=== PATIENT | male | born 2000 | race Caucasian/White ===

== ENCOUNTER 2022-06-13 13:00 | Emergency (ER) | payer OTHER ==
[~2022-06-13] VITALS: Ht 177.8 cm; Wt 87.5 kg
[2022-06-13 13:06] VITALS: BP 142/92
--- NOTE | 2022-06-13 13:16 | NUR ---
Patient ambulated to bed 7
--- NOTE | 2022-06-13 13:31 | NUR ---
WILLIAN Gonzalez evaluating patient at bedside.
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
[2022-06-13] MEDS ORDERED: ONDANSETRON 4 MG ODT PO ONE (13:40)
[2022-06-13] MEDS ORDERED: IBUP-2213 PO (13:57)
[2022-06-13] MEDS ORDERED: ONDA-188 PO (13:57)
[2022-06-13] MEDS ORDERED: ACET-10509 PO (13:57)
--- NOTE | 2022-06-13 14:43 | NUR ---
Patient discharged with v/s stable. Written and verbal after care instructions given. Patient alert, oriented and verbalized understanding of instructions. Ambulatory with steady gait. All questions addressed prior to discharge. ID band removed. Patient advised to follow up with PMD. Rx of Tylenol, Ibuprofen and Zofran given. Opportunity to ask questions provided and answered. WORK NOTE HANDED TO PATIENT.
--- NOTE | 2022-06-13 14:45 | NUR ---
The patient's care was reviewed and supervised by Laurie Velazquez, RN, RN.
== END 2022-06-13 14:43 | disposition home or self-care (01) ==
LOC: MED 13:00
DX: S06.0X0A Concussion without loss of consciousness, initial encounter (principal); S10.93XA Contusion of unspecified part of neck, initial encounter; R11.2 Nausea with vomiting, unspecified; Z79.899 Other long term (current) drug therapy; V49.88XA Car occupant (driver) (passenger) injured in other specified transport accidents, initial encounter; Y93.89 Activity, other specified; Y92.89 Other specified places as the place of occurrence of the external cause; Y99.8 Other external cause status
CPT/HCPCS: 99283; Q0162

== ENCOUNTER 2023-08-30 17:56 | Emergency (ER) | payer OTHER ==
[~2023-08-30] VITALS: Ht 170.2 cm; Wt 90.7 kg
[~2023-08-30 17:56] MED LIST: ACET-10509 PO; IBUP-2213 PO; ONDA-188 PO
[2023-08-30 18:11] VITALS: BP 128/80; PULSE 68; RESP 16; TEMP 98.7; O2SAT 100
[2023-08-30] MEDS ORDERED: AMOX500C25 PO (18:36)
[2023-08-30] MEDS ORDERED: IBUP-2213 PO (18:36)
[2023-08-31] MEDS ORDERED: AMOX-999 PO (02:01)
== END 2023-08-30 18:42 | disposition home or self-care (01) ==
LOC: MED 17:56
DX: K02.9 Dental caries, unspecified (principal); Z79.899 Other long term (current) drug therapy
CPT/HCPCS: 99283

== ENCOUNTER 2023-08-31 00:40 | Emergency (ER) | payer SELFPAY ==
[~2023-08-31] VITALS: Ht 172.7 cm; Wt 73.0 kg
[~2023-08-31 00:40] MED LIST changes: +AMOX500C25 PO
[2023-08-31 00:48] VITALS: BP 134/100; PULSE 90; RESP 14; TEMP 97.3; O2SAT 99
[2023-08-31] MEDS: KETOROLAC 30 MG/ML VIAL IM ONE (01:37)
[2023-08-31] MEDS: ACETAMINOPHEN 325 MG TAB PO ONE (01:37)
[2023-08-31] MEDS ORDERED: AMOX-999 PO (02:01)
[2023-08-31 02:20] VITALS: BP 134/100; PULSE 90; RESP 14; TEMP 97.3; O2SAT 99
== END 2023-08-31 02:20 | disposition home or self-care (01) ==
LOC: MED 00:40
DX: K04.7 Periapical abscess without sinus (principal); K08.89 Other specified disorders of teeth and supporting structures; Z79.899 Other long term (current) drug therapy
CPT/HCPCS: 96372; 99283; J1885

== ENCOUNTER 2024-01-02 00:38 | Emergency (ER) | payer SELFPAY ==
[~2024-01-02] VITALS: Ht 172.7 cm; Wt 90.7 kg
[~2024-01-02 00:38] MED LIST changes: -ACET-10509 PO; +ACET500T99 PO; +AMOX-999 PO
[2024-01-02 00:48] VITALS: BP 122/92; PULSE 104; RESP 16; TEMP 98.5; O2SAT 98
[2024-01-02 00:57] VITALS: BP 122/92; PULSE 104; RESP 16; TEMP 98.5; O2SAT 98
[2024-01-02] MEDS ORDERED: ONDA8TAB87 PO (01:11)
[2024-01-02] MEDS ORDERED: IBUP-2213 PO (01:11)
[2024-01-02] MEDS: ONDANSETRON 4 MG/2 ML VIAL IVP ONE (01:16)
[2024-01-02] MEDS: NACL 0.9% 1,000 ML IV ONE (01:16)
[2024-01-02] MEDS: KETOROLAC 30 MG/ML VIAL IVP ONE (01:17)
[2024-01-02 01:20] LABS: FLU A ANTIGEN negative (NEGATIVE); FLU B ANTIGEN NEGATIVE (NEGATIVE)
== END 2024-01-02 01:58 | disposition home or self-care (01) ==
LOC: MED 00:41
DX: R11.2 Nausea with vomiting, unspecified (principal); M79.10 Myalgia, unspecified site; R10.9 Unspecified abdominal pain; R05.9 Cough, unspecified; R03.0 Elevated blood-pressure reading, without diagnosis of hypertension; F12.90 Cannabis use, unspecified, uncomplicated; Z20.822 Contact with and (suspected) exposure to COVID-19; Z79.899 Other long term (current) drug therapy
CPT/HCPCS: 87426; 87804; 96361; 96374; 96375; 99284; J1885; J2405; J7030